=== PATIENT | female | born 1995 | race Two or more races ===

== ENCOUNTER 2019-05-25 00:02 | Emergency (ER) | payer MEDICAID ==
[~2019-05-25] VITALS: Ht 160 cm; Wt 129.7 kg
--- NOTE | 2019-05-25 00:16 | NUR ---
PT CAME INTO THE ED C/O L LOWER QUADRANT PAIN RADIATING TO THE BACK X 5 MONTHS 02/14 PS. PT AAOX4, VSS, BREATHING EVEN AND UNLABORED ON ROOM AIR W/ NAD NOTED. PT CONNECTED TO THE MONITOR AND POX
--- NOTE | 2019-05-25 00:17 | NUR ---
AWAITING FOR MD DAMON
[2019-05-25] MEDS ORDERED: KETOROLAC TROMETHAMINE INJ 30 MG/ML VIAL ONE (00:24)
[2019-05-25] MEDS ORDERED: DEXAMETHASONE SOD PHOSPHATE 10 MG/ML VIAL ONE (00:24)
[2019-05-25] MEDS ORDERED: KETOROLAC TROMETHAMINE INJ 30 MG/ML VIAL IV ONE (00:30)
[2019-05-25] MEDS ORDERED: DEXAMETHASONE SOD PHOSPHATE 10 MG/ML VIAL IV ONE (00:30)
[2019-05-25] MEDS ORDERED: ONDANSETRON HCL/PF 4 MG/2 ML VIAL IVP ONE (00:30)
[2019-05-25] MEDS ORDERED: IV NS 0.9% 500 ML BAG IV ONE (00:30)
[2019-05-25] MEDS ORDERED: ONDANSETRON HCL/PF 4 MG/2 ML VIAL ONE (00:36)
[2019-05-25 00:46] LABS: BASOPHILS # (AUTO) 0.1 /CMM (0.0-0.2); BASOPHILS % (AUTO) 0.8 % (0.0-2.0); EOSINOPHILS % (AUTO) 2.4 % (0.0-6.0); HEMATOCRIT 38 % (33-45); HEMOGLOBIN 12.6 g/dL (11.5-14.8); LYMPHOCYTES # (AUTO) 3.6 /CMM (0.8-4.8); LYMPHOCYTES % (AUTO) 38.3 % (20.0-44.0); MEAN CORPUSCULAR HGB CONC 33 g/dl (31.0-36.0); MEAN CORPUSCULAR VOLUME 82 fL (82-100); MONOCYTES # (AUTO) 0.8 /CMM (0.1-1.30); MONOCYTES % (AUTO) 8.8 % (2.0-12.0); NEUTROPHILS # (AUTO) 4.7 /CMM (1.8-8.9); NEUTROPHILS % (AUTO) 49.7 % (43.0-81.0); PLATELET COUNT (AUTO) 282 /CMM (150-450); WHITE BLOOD COUNT (AUTO) 9.4 K/uL (4.3-11.0)
[2019-05-25 00:47] LABS: CALCIUM, SERUM 8.6 mg/dL (8.5-10.1); CREATININE 0.9 mg/dL (0.6-1.3); POTASSIUM 3.8 mmol/L (3.5-5.1)
[2019-05-25 00:59] LABS: ALBUMIN 3.3 g/dL (3.4-5.0); BILIRUBIN,TOTAL 0.3 mg/dL (0.2-1.0); TOTAL PROTEIN, SERUM 7.3 g/dL (6.4-8.2)
[2019-05-25] MEDS ORDERED: MORPHINE SULFATE INJ 4 MG/ML DISP.SYRIN ONE (01:14)
[2019-05-25 01:18] LABS: APPEARANCE,URINE Clear (CLEAR); BILIRUBIN,URINE Negative (NEGATIVE); BLOOD, URINE Moderate Ery/uL (NEGATIVE); COLOR,URINE Yellow (YELLOW); KETONES,URINE Negative (NEGATIVE); LEUKOCYTE ESTERASE ,URINE Negative (NEGATIVE); NITRITE, URINE Negative (NEGATIVE); PH,URINE 6.5 (5.0-8.0); PROTEIN,URINE Negative (NEGATIVE); UGLUCOSE Negative (NEGATIVE); UROBILINOGEN,URINE 0.2 EU/dL (0.2)
[2019-05-25] MEDS ORDERED: MORPHINE SULFATE INJ 2 MG/ML DISP.SYRIN IV ONE (01:30)
--- NOTE | 2019-05-25 01:30 | NUR ---
ULTRASOUND IN PROGRESS AT BEDSIDE
[2019-05-25 01:36] LABS: BACTERIA,URINE None seen /HPF (None Seen); RBC,URINE 21-50 /HPF (0-2); SQUAMOUS EPITHELIAL CELL,UR Few /HPF (None Seen); WBC,URINE 0-2 /HPF (0-3)
[2019-05-25] MEDS ORDERED: HYDROMORPHONE 1 MG/1 ML DISP.SYRIN ONE (03:15)
[2019-05-25] MEDS ORDERED: CIPROFLOXACIN HCL 500 MG TABLET ONE (03:15)
[2019-05-25] MEDS ORDERED: METRONIDAZOLE 500 MG TABLET ONE (03:16)
[2019-05-25] MEDS ORDERED: HYDROMORPHONE INJ 0.5 MG/0.5 ML SYRINGE IV ONE (03:30)
[2019-05-25] MEDS ORDERED: METRONIDAZOLE 500 MG TABLET PO ONE (03:30)
[2019-05-25] MEDS ORDERED: CIPROFLOXACIN HCL 500 MG TABLET PO ONE (03:30)
[2019-05-25 03:36] VITALS: BP 117/84
--- NOTE | 2019-05-25 03:36 | NUR ---
Patient discharged to home in stable condition. Written and verbal after care instructions given. Patient verbalizes understanding of instruction.IV removed. Catheter intact and site benign. Pressure and 4x4 applied to site. No bleeding noted.
== END 2019-05-25 03:36 | disposition home or self-care (01) ==
LOC: ER 00:04
DX: K57.32 Diverticulitis of large intestine without perforation or abscess without bleeding (principal); N20.0 Calculus of kidney; E66.01 Morbid (severe) obesity due to excess calories; J45.909 Unspecified asthma, uncomplicated; Z68.43 Body mass index [BMI] 50.0-59.9, adult; Z90.89 Acquired absence of other organs
CPT/HCPCS: 36415; 74176; 76856; 80048; 80076; 81001; 84702; 85025; 85730; 86850; 96374; 96375; 99284; J1100; J1170; J1885; J2270; J2405; J7040; 81000-TC

== ENCOUNTER 2021-09-30 18:12 | Emergency (ER) | payer MEDICAID ==
[~2021-09-30] VITALS: Ht 160 cm; Wt 122.5 kg
--- NOTE | 2021-09-30 18:13 | NUR ---
TO ER BED 10, BIBRA 80 FROM [address] STATION C/O DIZZINESS AFTER DONATING PLASMA 2 HRS [employer], C/O SLIGHT HEADACHE UPON ASSESSMENT, AAOX3, BREATHING EVEN AND NON LABORED, CONNECTED TO MONITOR
--- NOTE | 2021-09-30 18:30 | NUR ---
SEEN AND EXAMINED BY DR HEALY
[2021-09-30] MEDS ORDERED: IV NS 0.9% 1,000 ML BAG IV ONE (19:00)
--- NOTE | 2021-09-30 19:02 | NUR ---
MACHINE SPREADER AT BEDSIDE FOR BLOOD DRAW
--- NOTE | 2021-09-30 19:41 | NUR ---
RECEIVED REPORT FROM JOSUÉ THURSTON FOR ARPITA
[2021-09-30 20:27] LABS: CALCIUM, SERUM 7.9 mg/dL (8.5-10.1); CREATININE 0.8 mg/dL (0.6-1.3); POTASSIUM 3.6 mmol/L (3.5-5.1)
--- NOTE | 2021-09-30 20:27 | NUR ---
PT RESTING COMFORTABLY IN BED, BP NOTED AT 94/57. MD MADE AWARE
--- NOTE | 2021-09-30 20:51 | NUR ---
FOOD AND WATER PROVIDED
[2021-09-30 21:10] LABS: BASOPHILS % (AUTO) 0.2 % (0.0-2.0); EOSINOPHILS % (AUTO) 0.2 % (0.0-6.0); HEMATOCRIT 43 % (33-45); HEMOGLOBIN 13.5 g/dL (11.5-14.8); LYMPHOCYTES # (AUTO) 1.9 K/uL (0.8-4.8); LYMPHOCYTES % (AUTO) 12.2 % (20.0-44.0); MEAN CORPUSCULAR HGB CONC 31 g/dl (31.0-36.0); MEAN CORPUSCULAR VOLUME 75 fL (82-100); MONOCYTES # (AUTO) 0.7 K/uL (0.1-1.30); MONOCYTES % (AUTO) 4.5 % (2.0-12.0); NEUTROPHILS # (AUTO) 12.8 K/uL (1.8-8.9); NEUTROPHILS % (AUTO) 82.9 % (43.0-81.0); PLATELET COUNT (AUTO) 265 K/uL (150-450); RED BLOOD CELL COUNT(AUTO) 5.74 MIL/uL (4.0-5.2); WHITE BLOOD COUNT (AUTO) 15.4 K/uL (4.3-11.0)
--- NOTE | 2021-09-30 21:30 | NUR ---
Patient discharged to home in stable condition. Written and verbal after care instructions given. Patient verbalizes understanding of instruction.
[2021-09-30 21:31] VITALS: BP 100/60
== END 2021-09-30 21:31 | disposition home or self-care (01) ==
LOC: ER 18:26
DX: I95.1 Orthostatic hypotension (principal); J45.909 Unspecified asthma, uncomplicated; Z87.42 Personal history of other diseases of the female genital tract; Z90.89 Acquired absence of other organs
CPT/HCPCS: 36415 ×2; 71045; 80048; 82962; 85025; 93005; 96360; 99285; J7030